=== PATIENT | female | born 1935 | race Caucasian/White ===

== ENCOUNTER 2021-06-28 08:16 | Emergency (ER) | payer MEDICARE, MEDICAID ==
[2021-06-28] MEDS ORDERED: Ondansetron PF 4 MG/2 ML Vial ONE (08:44)
[2021-06-28] MEDS ORDERED: Sodium Chloride 0.9% 1,000 ML ONE (08:44)
[2021-06-28 09:01] LABS: #Basophils 0.1 thou/uL (0.0-0.2); #Eosinphils 0.3 thou/uL (0.0-0.7); #Lymphocytes 0.8 thou/uL (1.20-3.40); #Monocytes 0.3 thou/uL (0.11-0.59); #Neutrophils 3.5 thou/uL (1.40-6.50); %Basophils 1.4 % (0.0-1.0); %Eosinophils 5.3 % (0.0-10.0); %Lymphocytes 17.1 % (21.0-51.0); %Monocytes 5.9 % (0.0-10.0); %Neutrophils 70.4 % (42.0-75.0); Hemoglobin 14.8 g/dL (12.0-16.0); Mean Corpuscular Hemoglobin 32.1 pg (27.0-31.0); Mean Corpuscular Volume 97.4 fL (78.0-98.0); Mean Platelet Volume 8.8 fL (7.4-10.4); Platelet Count 192 thou/uL (130-400); RBC Distribution Width 12.1 % (11.5-14.5); Red Blood Cell (RBC) Count 4.59 mill/uL (4.20-5.40); White Blood Cell (WBC) Count 4.9 thou/uL (4.8-10.8)
[2021-06-28 09:15] LABS: ALT (SGPT) 16 U/L (8-55); AST (SGOT) 13 U/L (5-34); Albumin 3.7 g/dL (3.4-4.8); Alkaline Phosphatase 48 U/L (40-110); Anion Gap 11 mmol/L (10-20); BUN (Urea Nitrogen) 12 mg/dL (9.8-20.1); Bilirubin, Total 2.7 mg/dL (0.2-1.2); Calc. Creatinine Clearance 0 mL/min (70-130); Calcium 8.8 mg/dL (7.8-10.44); Carbon Dioxide 24 mmol/L (23-31); Chloride 105 mmol/L (98-107); Globulin 2.4 g/dL (2.4-3.5); Glucose 127 mg/dL (83-110); Potassium 3.9 mmol/L (3.5-5.1); Protein, Total 6.1 g/dL (5.8-8.1); Sodium 136 mmol/L (136-145)
[2021-06-28] MEDS ORDERED: Aspirin Chewable 81 MG TAB ONE (12:25)
[2021-06-28 13:24] LABS: SARS-CoV-2 NAA Rapid Test Not Detected (NotDetected)
== END 2021-06-28 14:43 | disposition short-term general hospital (02) ==
LOC: NAV ERS 08:16 → SUATTDRO 08:16 → NAV ERS 14:43
PROVIDERS: ADMIT Family Medicine; ATTEND Family Medicine
DX: R42 Dizziness and giddiness (principal); Z20.822 Contact with and (suspected) exposure to COVID-19; I10 Essential (primary) hypertension
CPT/HCPCS: 0240U; 70450; 80053; 85025; 93005; J2405; J7050

== ENCOUNTER 2022-12-26 17:17 | Emergency (ER) | payer MEDICAID, MEDICARE, SELFPAY ==
[2022-12-26] MEDS ORDERED: Lidocaine 1% (PF) 30 ML VIAL ONE (17:43)
[2022-12-26] MEDS ORDERED: Sulfameth/Trimethoprim DS 800-160mg TAB ONE (18:26)
[2022-12-26] MEDS ORDERED: Amoxicillin/Potassium Clav 875 MG TAB ONE (18:27)
[2022-12-26] MEDS ORDERED: traMADol HCl 50 MG TAB ONE (19:05)
== END 2022-12-26 19:10 | disposition home or self-care (01) ==
LOC: NAV ERS 17:17
DX: S61.452A Open bite of left hand, initial encounter (principal); S61.451A Open bite of right hand, initial encounter; I10 Essential (primary) hypertension; W55.01XA Bitten by cat, initial encounter
CPT/HCPCS: 12002; J2001